=== PATIENT | male | born 1990 ===

== ENCOUNTER 2022-08-15 16:20 | Inpatient (IN) | payer MEDICAID ==
[2022-08-16] MEDS ORDERED: ACETAMINOPHEN TAB 325 MG TAB PO PRN (14:45)
[2022-08-16] MEDS ORDERED: MAGNESIUM HYDROXIDE 2,400 MG/10 ML CUP PO PRN (14:45)
[2022-08-16] MEDS ORDERED: HALOPERIDOL LACTATE 5 MG/ML 1 ML VIAL IM PRN (14:45)
[2022-08-16] MEDS ORDERED: LORazepam 1 MG TAB PO PRN (14:45)
[2022-08-16] MEDS ORDERED: MAG HYDROX/AL HYDROX/SIMETH 30 ML CUP PO PRN (14:45)
[2022-08-16] MEDS ORDERED: LORazepam 2 MG/ML INJ IM PRN (14:47)
[2022-08-16] MEDS ORDERED: haloperidoL 5 MG TAB PO PRN (14:47)
[2022-08-16] MEDS: PALIPERIDONE 3 MG TAB.ER.24 PO SCH (23:14)
[2022-08-16] MEDS: TRIHEXYPHENIDYL 2 MG TAB PO SCH (23:14)
[2022-08-16] MEDS: DIVALPROEX 500 MG TABLET.DR PO SCH (23:14)
--- NOTE | 2022-08-17 01:25 | P.CONS ---
History of Present Illness - Reason for Consult Consult date: 08/17/22 - History of Present Illness The patient is a 32-year-old male with known PMH who was transferred to [facility] from an outside facility where the patient was admitted for psychosis. Patient was seen in the mental health unit. The patient had flight of ideas with tangentiality during the interview. 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 He denied any physical complaints. Denied experiencing chest discomfort, shortness of breath, fever, chills, cough, nausea, vomiting, abdominal pain, diarrhea. Denies any chronic medical conditions. Denied tobacco, marijuana, or alcohol use. Review of systems: Pertinent positives and negatives as discussed in HPI, a complete review of systems was performed and all other systems are negative. Physical examination: General: non toxic, no distress, appears at stated age, normal weight Derm: no unusual rashes/lesions, no unusual ecchymoses, warm, dry Head: atraumatic, normocephalic, symmetric Eyes: EOMI, no lid lag, anicteric sclera ENT: Nose and ears atraumatic, no thrush, no pharyngeal erythema Neck: trachea midline, supple Mouth: no lip lesion, mucus membranes moist Cardiovascular: S1S2 reg, no murmur, no edema Lungs: CTA bilateral, no rhonchi, no rales , no accessory muscle use Abdominal: soft, nontender to palpation, no guarding Ext: no gross muscle atrophy, no contractures, Neuro: No gross focal neuro deficits noted Psych: Alert, oriented, flight of ideas, tangentiality, grandiosity Assessment/plan Psychosis -As per psychiatry Thank you for allowing us to participate in the care of this patient. We will follow peripherally. Do not hesitate to contact us with questions. Someone can be reached from the [facility] hospitalist group at all hours of the day at [phone]. Past Medical History History of Any Multi-Drug Resistant Organisms: None Reported Smoking Status: Unknown if ever smoked - Past Family History Mother Family Medical History: Myocardial Infarction ([place]) Medications and Allergies Home Medications Medication Instructions Recorded Confirmed Type No Known Home Medications 08/16/22 08/16/22 History Allergies Allergy/AdvReac Type Severity Reaction Status Date / Time No Known Allergies Allergy Verified 08/16/22 22:13 Physical Exam Vitals: Vital Signs Temp Pulse Resp BP 08/16/22 22:04 97.4 F L 59 L 15 111/56 Intake and Output 08/16/22 08/16/22 08/17/22 14:59 22:59 06:59 Other: Weight 79.832 kg 79.832 kg
[2022-08-17] MEDS: TRIHEXYPHENIDYL 2 MG TAB PO SCH ×2 (09:03→20:18)
[2022-08-17] MEDS: PALIPERIDONE 3 MG TAB.ER.24 PO SCH ×2 (09:04→20:18)
[2022-08-17] MEDS: DIVALPROEX 500 MG TABLET.DR PO SCH ×2 (09:04→20:18)
[2022-08-17] MEDS: NICOTINE 14MG/24HR PATCH TRANSDERM SCH (09:06)
[2022-08-17] MEDS ORDERED: LORazepam 1 MG/0.5 ML VIAL IM PRN (14:05)
[2022-08-17 18:03] LABS: Chol/HDL Ratio 1.61 Ratio; LDL Cholesterol,Calculated 25.7 mg/dL (0.0-131.0); VLDL Calculation 16.46 mg/dL (5.00-40.00)
--- NOTE | 2022-08-18 02:38 | HP ---
DATE OF SERVICE: 08/17/2022 HISTORY AND PHYSICAL IDENTIFYING DATA: The patient is a 32-year-old male, he resides in an [facility] with the home care provider being, Rimma Borrego. He was referred on petition by Social Work after being brought to the hospital by police. CHIEF COMPLAINT: The patient was extremely disorganized in thinking and behavior. HISTORY OF PRESENTING ILLNESS: The patient was not able to provide any meaningful information. I was able to get limited information from the patient's brother, Suman, though the information he provided was also limited. He indicated that the patient has a diagnosis of schizophrenia. He resides in an [facility]. He apparently walked away from the [facility] in July and had an admission to [facility] on August 01. It is unclear for how many days he was there, though the patient seemed to indicate he with there for several weeks. He was discharged and went back to the [facility] and again wandered off from the [facility]. He was picked up by police. They noted him to be quite disorganized and confused. According to the petition, he was observed to show "extreme disorganized thinking and confusion with delusional behavior, noncompliant with medications, lacks insight into his condition." When I talked to the patient, he rambled about any number of things, though it was hard to comprehend much of what he was saying, he made comments about being a basketball star and something about being much taller than he actually is. He made references to various situations where I had no understanding what he was trying to communicate. He frequently made comments about something to do with his uncle and that how he became "scared for my life." He did not provide details. His brother did indicate that he had a previous psychiatric hospitalization some years ago, though no more details were provided. The brother said that he did not really know much about the immediate situation of his coming to the hospital other than leaving the [facility]. The patient is admitted for further evaluation. SUBSTANCE USE HISTORY: No information available. PAST MEDICAL HISTORY: No information available. FAMILY AND SOCIAL HISTORY: No information available. MENTAL STATUS EXAM: Patient was restless. He gave fair eye contact. He had pressured speech or flight of ideas. He made frequent comments about needing to be discharged today though also would make comments that comments where he asked questions "will [facility] When I asked him what day was, he said it was September 07. I asked him how many days that would be until then, he was able to determine that there were 20 days left between now and . His affect was somewhat intense. His mood was dysphoric. He was significantly distressed. He showed significant delusions, difficult to assess for hallucinations. He did make a clear response to internal stimuli. It was difficult to assess for thoughts of harm. He was not able to respond to orientation questions. It is noteworthy that the patient was able to give me his brother, Feliz, telephone number, which was accurate. PHYSICAL EXAMINATION: As per medical consultation assessment this 32-year-old male is diagnosed with schizophrenia as per history from brother. He presents with delusional thinking and disorganized behavior. We do not have further information at this time, though do need to get input from his [facility] to get a clear picture of his baseline as well as current circumstances. DIAGNOSIS: Schizophrenia. RECOMMENDATIONS: Patient will be admitted for comprehensive medical, psychiatric, and psychosocial evaluation. We will engage the patient in individual and group therapeutic activities. He will be started on Invega 3 mg twice a day, Depakote 500 mg twice a day and Artane 1 mg twice a day. The most important issue at this point will be to get input from his [facility] so that we can broaden the evaluation and coordinate with the treatment and discharge planning. DORIS / DAVID: [id number] / MTDD
[2022-08-18] MEDS: NICOTINE 14MG/24HR PATCH TRANSDERM SCH (08:41)
[2022-08-18] MEDS: TRIHEXYPHENIDYL 2 MG TAB PO SCH ×2 (08:41→20:04)
[2022-08-18] MEDS: DIVALPROEX 500 MG TABLET.DR PO SCH ×2 (08:42→20:03)
[2022-08-18] MEDS: PALIPERIDONE 3 MG TAB.ER.24 PO SCH ×2 (08:42→20:03)
[2022-08-18] MEDS ORDERED: LORazepam 1 MG/0.5 ML VIAL IM STA (11:33)
--- NOTE | 2022-08-18 11:39 | P.PN ---
Progress Note - Text Progress Note Date: 08/18/22 Interval History: Patient was seen wandering the hallways and was directable and agreeable to sp ajitk with bid writer in the office. Patient was fairly persistent with bid writer to speak with him in the office. Patient was rambling on and claims that he needs to go to his graduation ceremony in for [employer]. He claims that he wants to go to the [facility] and asked if "the customer care team coach called you". Patient was demanding discharge several times during conversation and demanded that bid writer call his family and call his finance attorney. He was difficult to redirect during conversation and once he left the room she began yelling and demanding discharge. Patient was given prn Haldol and Ativan IM afterwards. At this time patient denies any suicidal or homical ideations, intent or plan. Patient denies any auditory, visual hallucinations. Patient denies any side effects from the medications and has been compliant with meds. Apparently patient has been having a difficult time sleeping. Mental Status Exam: General Appearance: Patient appears to be average pills, stated age is alert, difficult to redirect and demanding. Wearing hospital gown. Behavior: Patient is yelling at times and demanding. Speech: Patient's speech is fluent and nonpressured. Loud at times. Mood/Affect: Mood is "fine", affect is incongruent Suicidality/Homicidality: Patient denies having any suicidal or homicidal ideation intent or plan. Perceptions: Patient denies any visual hallucinations and denies any auditory hallucinations Though content/process: Rambling, illogical at times. Demanding discharge. Memory and concentration: AOX3, grossly intact for the purposes of this session Judgment and insight: Poor Assessment Schizophrenia Plan: -Patient continues to meet criteria for inpatient psychiatric admission for symptom stabilization and safety. Patient has signed adult voluntary form and was placed in patient's chart. -Medications: Increased Invega to 9 mg daily at bedtime for psychosis/mood stabilization, Depakote changed to 1000 mg daily at bedtime. Added Benadryl 25 mg daily at bedtime for sleep. Artane 1 mg twice a day for EPS prophylaxis. -When necessary Ativan and Haldol for agitation/aggression. -NRT -not needed as patient does not smoke -SW on board for discharge planning. Encouraged the patient to participate in milieu. Patient is currently in a [facility] in [facility], social media assistant to reach out to them and coordinate discharge likely tomorrow.
[2022-08-18] MEDS: diphenhydrAMINE 25 MG CAP PO SCH (20:03)
[2022-08-18] MEDS ORDERED: PALIPERIDONE 6 MG TAB.ER.24 PO SCH (21:00)
[2022-08-19] MEDS: NICOTINE 14MG/24HR PATCH TRANSDERM SCH (10:32)
[2022-08-19] MEDS: TRIHEXYPHENIDYL 2 MG TAB PO SCH ×2 (10:34→20:35)
--- NOTE | 2022-08-19 14:08 | P.PN ---
Progress Note - Text Progress Note Date: 08/19/22 Interval History: Patient was seen wandering the hallways and was directable and agreeable to sp eak with typewriter repairer. The patient appears to be calmer today and more directable during conversation. He continues to focus on discharge. He continues to state that he wants to see if he can graduate from [employer]. She spoke about his brother trying to come pick him up. He states that he is feeling better overall today and less irritable. Patient was showing improvement in hygiene and grooming and had showered earlier today. He was agreeable today to sign voluntary. States that he is sleeping fairly. Going to some groups however is not able to convey what he is learning. At this time patient denies any suicidal or homical ideations, intent or plan. Patient denies any auditory, visual hallucinations. Patient denies any side effects from the medications and has been compliant with meds. Mental Status Exam: General Appearance: Patient appears to be average build, stated age is alert, or directable today. Wearing hospital gown. Behavior: Patient is calmer today, more cooperative. Speech: Patient's speech is fluent and nonpressured. Mood/Affect: Mood is "ok", affect is incongruent Suicidality/Homicidality: Patient denies having any suicidal or homicidal ideation intent or plan. Perceptions: Patient denies any visual hallucinations and denies any auditory hallucinations Though content/process: Rambling, more logical today. Continues to focus on discharge. Memory and concentration: AOX3, grossly intact for the purposes of this session Judgment and insight: Chronically limited Assessment Schizophrenia Plan: -Patient continues to meet criteria for inpatient psychiatric admission for symptom stabilization and safety. Patient has signed adult voluntary form and was placed in patient's chart. -Medications: Invega 9 mg daily at bedtime for psychosis/mood stabilization, Depakote 1000 mg daily at bedtime. Benadryl 25 mg daily at bedtime for sleep. Artane 1 mg twice a day for EPS prophylaxis. -When necessary Ativan and Haldol for agitation/aggression. -NRT -not needed as patient does not smoke -SW on board for discharge planning. Encouraged the patient to participate in milieu. Patient is currently in a senior care in [facility], geriatric social worker reached out to patient's brother is not able to pick him up today to return him back to the senior care however we'll be able to come tomorrow for discharge.
[2022-08-19] MEDS: DIVALPROEX 500 MG TABLET.DR PO SCH (20:34)
[2022-08-19] MEDS: PALIPERIDONE 3 MG TAB.ER.24 PO SCH (20:34)
[2022-08-19] MEDS: diphenhydrAMINE 25 MG CAP PO SCH (20:35)
[2022-08-19 21:25] VITALS: PULSE 59
[2022-08-20 07:00] VITALS: BP 129/77; RESP 18; TEMP 97.9
[2022-08-20] MEDS: NICOTINE 14MG/24HR PATCH TRANSDERM SCH (08:57)
[2022-08-20] MEDS: TRIHEXYPHENIDYL 2 MG TAB PO SCH (08:58)
--- NOTE | 2022-08-20 10:36 | P.DS ---
Providers Date of admission: 08/16/22 20:49 Expected date of discharge: 08/20/22 Attending physician: George Mckinley MD Consults: 08/16/22 14:45 Consult Physician Routine Consulting Provider: Kushal Bateman Consult Reason/Comments: medical management Do you want consulting provider notified?: Yes Primary care physician: Stated None - Discharge Diagnosis(es) (1) Schizophrenia Current Visit: Yes Status: Acute Priority: High Hospital Course: Admission HPI: Admission note was completed by Dr Vanegas "the patient is a 32-year-old male, he resides in an [facility] with the home care provider being Rimma Stovall. He was referred on petition by manager social responsibility after being brought to the hospital by police. The patient was extremely disorganized in thinking and behavior. The patient was not able to provide anything meaningful information. I was able to get limited information from the patient's brother, Jacek, though the information she provided was limited. He indicated that the patient has a diagnosis of schizophrenia. He resides in an [facility]. He apparently walked away from the [facility] in July and had an admission at [facility] on August 01. It is unclear for how many days he was there, though the patient seemed to indicate he was there for several weeks. He was discharged and went back to the [facility] and again wandered off from [facility]. He was picked up by police. They noted him to be quite disorganized and confused. According to the petition and he was observed to show "extremely disorganized thinking and confusion with delusional behavior, noncompliant with medications, lacks insight into his condition." When I talked to the patient he rambled about any number of things though it was hard to comprehend much of what she was saying he made comments about being a basketball star and something about being much taller than he actually is. He made reference to various situations where I had no understanding what he was trying to communicate. He frequently made comments about something to do with his uncle and how he became "scared for my life." He did not provide details. His brother did indicate that she had a previous psychiatric hospitalization some years ago though no more details were provided. The brother said that he did not really know much about the immediate situation of his coming to the hospital other than leaving the AF. The patient is admitted for further evaluation." Hospital course: Upon admission to the unit patient was directable and agreeable to commence treatment and signed adult voluntary form . Patient got along well with other patients on the unit and followed unit protocol. Patient was compliant with the medications and denied any side effects throughout hospital course. Patient was started on paliperidone by mouth increased her dose of 9 mg daily at bedtime for psychosis, Depakote 1000 mg daily at bedtime for mood stabilization, Benadryl 25 mg daily at bedtime for sleep, Artane 1 mg twice a day for EPS prophylaxis. Patient spoke of his stressors and engaged in therapy both group and individual. Patient was also seen by medical team for history and physical exam. Throughout the course of the hospitalization patient gradually improved with regards to psychosis, mood/anxiety, sleep and returned back to their baseline level of functioning. On the day of discharge patient denied any suicidal or homicidal ideations intent or plan denied any auditory or visual hallucinations. Patient endorsed wanting to live for his health and his family. The patient denied any access to guns or weapons. Patient does not have a significant history of substance abuse and was counseled on abstaining from all substances including alcohol and marijuana. Patient was also counseled on the medications and need for regular compliance and was encouraged to follow-up with their outpatient appointment for mental health and also for primary care. Prior to discharge a family meeting will be arranged by manager social responsibility to answer any questions and ensure safety upon discharge. Patient's brother will be driving up today to seed cone picker patient and take him back to his [facility], manager social responsibility to coordinate patient's discharge today. Mental status exam: General Appearance: Patient appears to be average build, stated age is alert, pleasant, and directable. Patient is in no acute distress and has improved hygiene and grooming Behavior: Patient is calmly seated without any agitated behavior. Directable today. Speech: Patient's speech is fluent and nonpressured. Rambles at times. Mood/Affect: Patient reports their mood is "good", affect is congruent and euthymic. Suicidality/Homicidality: Patient denies having any suicidal or homicidal ideation intent or plan. Perceptions: Patient denies any auditory or visual hallucinations. Though content/process: There is no evidence of any delusional thought content and thought process is linear and goal-directed. More organized today. Memory and concentration: AOX3, grossly intact for the purposes of this session. Can spell "WORLD" backwards correctly. Judgment and insight: Chronically limited, improved with guarded prognosis Impression: Schizophrenia Plan: -Continue with discharge today as patient has improved and stabilized psychiatri fadi and is not currently an imminent threat to himself and/or others. Patient will remain at chronically elevated risk for harm to self and/or others due to his chronically limited insight and judgment -Continue medications: Paliperidone by mouth 9 mg daily at bedtime for psychosis, Depakote 1000 mg daily at bedtime for mood stabilization, Benadryl 25 mg daily at bedtime for sleep, Artane 1 mg twice a day for EPS prophylaxis. -Patient was counseled on the need for medication compliance and appropriate follow-up at mental health and also primary care for medical issues. Patient verbalized understanding and agreed. -Social work to arrange for and conduct family meeting to ensure safety upon discharge and answer any questions/concerns. Social work also to arrange for patients follow up appointments for psychiatric care along with follow up with primary care provider. -Patient counseled on abstaining from recreational drugs and marijuana and alcohol. Was informed/educated on the adverse effects on their physical and mental health. Patient verbally agreed and understood. -Patient was instructed to return to the hospital or seek immediate medical care if their psychiatric or medical symptoms do worsen or reoccur. Allergies Allergy/AdvReac Type Severity Reaction Status Date / Time No Known Allergies Allergy Verified 08/16/22 22:[address] Glu mg/dL 103 08/17/22 10:19 Hemoglobin A1c 5.2 % (0.0-6.0) 08/17/22 10:19 Triglycerides 82.30 mg/dL (0.00-149.00) 08/17/22 10:19 Cholesterol 111.00 mg/dL (0.00-200.00) 08/17/22 10:19 LDL Cholesterol, Calc 25.7 mg/dL (0.0-131.0) 08/17/22 10:19 VLDL Cholesterol, Calc 16.46 mg/dL (5.00-40.00) 08/17/22 10:19 HDL Cholesterol 68.80 mg/dL (40.00-60.00) H 08/17/22 10:19 Cholesterol/HDL Ratio 1.61 Ratio 08/17/22 10:19 TSH 1.160 mIU/L (0.465-4.680) 08/17/22 10:19 Valproic Acid 49.7 ug/mL 08/17/22 10:19 Vital Signs Temp 97.9 F 08/20/22 06:59 Pulse 59 L 08/20/22 06:59 Resp 18 08/20/22 06:59 BP 129/77 08/20/22 06:59 Pulse Ox 98 08/20/22 06:59 FiO2 Patient Condition at Discharge: Stable Plan - Discharge Summary Discharge Rx Participant: No New Discharge Prescriptions: New diphenhydrAMINE [Benadryl] 25 mg PO HS 30 Days cap Nicotine 14Mg/24Hr Patch [Habitrol] 1 patch TRANSDERM DAILY 14 Days patch Paliperidone [Invega] 9 mg PO HS 30 Days tab Trihexyphenidyl [Artane] 1 mg PO BID 30 Days tab Divalproex [Depakote] 1,000 mg PO HS 30 Days tab Discharge Medication List Divalproex [Depakote] 1,000 mg PO HS 30 Days tab 08/20/22 [Rx] Nicotine 14Mg/24Hr Patch [Habitrol] 1 patch TRANSDERM DAILY 14 Days patch 08/20/22 [Rx] Paliperidone [Invega] 9 mg PO HS 30 Days tab 08/20/22 [Rx] Trihexyphenidyl [Artane] 1 mg PO BID 30 Days tab 08/20/22 [Rx] diphenhydrAMINE [Benadryl] 25 mg PO HS 30 Days cap 08/20/22 [Rx] Patient Instructions/Handouts: How to Stop Smoking (DC), Schizophrenia (DC) Activity/Diet/Wound Care/Special Instructions: Avoid the use of street drugs and alcohol. Take all prescriptions as prescribed. When you are in need of refills on your medications, please contact your medical provider and/or outpatient psychiatrist to have this done. Please go to scheduled outpatient appointment for aftercare treatment. If symptoms return or become worse, call the crisis line at and/or go to the nearest emergency room for evaluation. Discharge Disposition: HOME SELF-CARE
== END 2022-08-20 17:32 | disposition home or self-care (01) | DRG 885 ==
LOC: 3MHU 08-16 20:49
PROVIDERS: ADMIT Psychiatry & Neurology Psychiatry; ATTEND Psychiatry & Neurology Psychiatry
DX: F20.9 Schizophrenia, unspecified (principal); Z91.14 Patient's other noncompliance with medication regimen; F41.9 Anxiety disorder, unspecified; T50.916A Underdosing of multiple unspecified drugs, medicaments and biological substances, initial encounter
CPT/HCPCS: 80061; 80164; 83036; 84443